=== PATIENT | male | born 1990 | race American Indian/Alaskan Native ===

== ENCOUNTER 2018-10-08 10:55 | Emergency (ER) | payer SELFPAY ==
--- NOTE | 2018-10-08 11:20 | Emergency Department Report ---
Blank Doc - Documentation Documentation: This is a 28-year-old male that presents with dysuria. Denies any penile disc harge. This initial assessment/diagnostic orders/clinical plan/treatment(s) is/are subject to change based on patient's health status, clinical progression and re- assessment by fellow clinical providers in the ED. Further treatment and workup at subsequent clinical providers discretion. Patient/guardians urged not to elope from the ED as their condition may be serious if not clinically assessed and managed. Initial orders include: 1- Patient sent to [facility] for further evaluation and treatment 2- UA
[2018-10-08 11:21] VITALS: BP 129/72
[2018-10-08 12:50] LABS: Bilirubin,Urine NEG (Negative); Blood,Urine NEG (Negative); Color,Urine Straw (Yellow); Mucus,Urine FEW /HPF; Protein,Urine <15 mg/dL mg/dL (Negative); Urobilinogen,Urine < 2.0 mg/dL (<2.0)
--- NOTE | 2018-10-08 14:13 | Emergency Department Report ---
ED Male HPI - General Chief complaint: Urogenital-Male Stated complaint: UTI Time Seen by Provider: 10/08/18 11:18 Source: patient Mode of arrival: Ambulatory Limitations: No Limitations - History of Present Illness Initial comments: 28-year-old -[place] males in the emergency department complaining of dysuria. Reports having history of urinary tract infections and states this feels the exact same" that he be treated for urinary tract infection. States that he is not worried about an STD, but having some increased urinary urgency and a little burning sensation. Reports no fever, chills, sweats. No chest pain palpitations, no hematuria, no constipation, diarrhea or rashes. MD Complaint: dysuria Severity: mild Quality: burning Consistency: intermittent Worsens with: urination denies: discharge, swelling, mass, urinary retention, dysuria, nausea/vomiting, incontinence - Related Data Previous Rx's Medication Instructions Recorded Last Taken Type DOXYCYCLINE Hyclate [Vibramycin 100 mg PO Q12HR #20 capsule 10/08/18 Unknown Rx CAP] Allergies Allergy/AdvReac Type Severity Reaction Status Date / Time No Known Allergies Allergy Unverified 10/08/18 11:04 ED Review of Systems ROS: Stated complaint: UTI Other details as noted in HPI Comment: All other systems reviewed and negative ED Past Medical Hx - Past Medical History Previous Medical History?: No - Surgical History Past Surgical History?: No - Social History Smoking Status: Current Every Day Smoker Substance Use Type: Alcohol - Medications Home Medications: Home Medications Medication Instructions Recorded Confirmed Last Taken Type DOXYCYCLINE Hyclate [Vibramycin 100 mg PO Q12HR #20 capsule 10/08/18 Unknown Rx CAP] ED Physical Exam - General Limitations: No Limitations General appearance: alert, in no apparent distress - Head Head exam: Present: atraumatic, normocephalic - Eye Eye exam: Present: normal appearance - ENT ENT exam: Present: mucous membranes moist - Neck Neck exam: Present: normal inspection - Respiratory Respiratory exam: Present: normal lung sounds bilaterally. Absent: respiratory distress - Cardiovascular Cardiovascular Exam: Present: regular rate, normal rhythm. Absent: systolic murmur, diastolic murmur, rubs, gallop - GI/Abdominal GI/Abdominal exam: Present: soft, normal bowel sounds - Rectal Rectal exam: Present: deferred - Extremities Exam Extremities exam: Present: normal inspection - Back Exam Back exam: Present: normal inspection - Neurological Exam Neurological exam: Present: alert, oriented X3 - Psychiatric Psychiatric exam: Present: normal affect, normal mood - Skin Skin exam: Present: warm, dry, intact, normal color. Absent: rash ED Course Vital Signs 10/08/18 11:19 Temperature 98.9 F Pulse Rate 74 Respiratory 18 Rate Blood Pressure 129/72 O2 Sat by Pulse 100 Oximetry ED Medical Decision Making - Medical Decision Making 28-year-old [place] male presents to the emergency department with a strong suspicion for urinary tract infection, although his urine. He. Urinalysis showed no obvious UTI. He states he is not concerned that STD, but still request to be treated for a UTI as he feels very strongly that this is the issue. Critical care attestation.: If time is entered above; I have spent that time in minutes in the direct care of this critically ill patient, excluding procedure time. ED Disposition Clinical Impression: Dysuria Disposition: DC-01 TO HOME OR SELFCARE Is pt being admited?: No Does the pt Need Aspirin: No Condition: Stable Instructions: Dysuria (ED) Prescriptions: DOXYCYCLINE Hyclate [Vibramycin CAP] 100 mg PO Q12HR #20 capsule
== END 2018-10-08 14:33 | disposition home or self-care (01) ==
LOC: ED 10:55
DX: R30.0 Dysuria (principal)
CPT/HCPCS: 81001; 87086